=== PATIENT | male | born 1960 | race African-American/Black ===

== ENCOUNTER 2016-12-17 03:47 | Emergency (ER) | payer OTHER, SELFPAY ==
[2016-12-17] MEDS ORDERED: Lorazepam 2 MG/ML VIAL ONE (04:01)
[2016-12-17] MEDS ORDERED: Metoprolol Tartrate 5 MG/5 ML VIAL ONE ×3 (04:12→04:42)
[2016-12-17 04:17] LABS: INR-International Normal Ratio 1.2; PTT 23.6 SEC (22.9-36.1); Prothrombin Time 15.2 SEC (12.0-14.7)
[2016-12-17 04:24] LABS: Acetaminophen Less than 6.0 mcg/mL (10.0-30.0); Alcohol 114 mg/dL (Less than 10); Salicylate Less than 8.0 mg/dL (15.0-30.0)
[2016-12-17 04:27] LABS: #Basophils 0.1 thou/uL (0.0-0.2); #Lymphocytes 2.8 thou/uL (1.20-3.40); #Monocytes 0.7 thou/uL (0.11-0.59); #Neutrophils 2.7 thou/uL (1.40-6.50); %Eosinophils 0.3 % (0.0-10.0); %Lymphocytes 44.6 % (21.0-51.0); %Monocytes 11.1 % (0.0-10.0); ALT (SGPT) 24 U/L (8-55); AST (SGOT) 25 U/L (5-34); Alkaline Phosphatase 63 U/L (40-150); Anion Gap 17 mmol/L (10-20); BUN (Urea Nitrogen) 8 mg/dL (8.4-25.7); Bilirubin, Total 0.8 mg/dL (0.2-1.2); Calc. Creatinine Clearance 0 mL/min (70-130); Calcium 9.4 mg/dL (7.8-10.44); Carbon Dioxide 21 mmol/L (22-29); Chloride 105 mmol/L (98-107); Estimated GFR-MDRD 72; Globulin 3.7 g/dL (2.4-3.5); Glucose 150 mg/dL (70-105); Hemoglobin 19.4 g/dL (14.0-18.0); Lipase 19 U/L (8-78); MDiff Complete? YES; Macrocytosis SLIGHT = 6-15 cells (100X) (0-5/hpf); Mean Corpuscular HGB CONC 36.3 g/dL (32.0-36.0); Mean Corpuscular Hemoglobin 35.5 pg (27.0-31.0); Mean Corpuscular Volume 97.9 fl (80.0-94.0); Mean Platelet Volume 8.4 fL (7.4-10.4); PLT Morphology Comment Appears Adequate; Platelet Count 236 thou/uL (130-400); Potassium 3.6 mmol/L (3.5-5.1); Protein, Total 7.7 g/dL (6.0-8.3); RBC Distribution Width 11.8 % (11.5-14.5); Red Blood Cell (RBC) Count 5.45 mill/uL (4.70-6.10); Sodium 139 mmol/L (136-145); White Blood Cell (WBC) Count 6.3 thou/uL (4.8-10.8)
[2016-12-17 04:28] LABS: CKMB 1.3 ng/mL (0-6.6); Troponin I 0.012 ng/mL (< 0.028)
[2016-12-17] MEDS ORDERED: Nitroglycerin 50 MG/250 ML BOT 0 ML ONE (04:52)
[2016-12-17] MEDS ORDERED: Nitroglycerin 2% Ointment 1 INCH/1 GM Packet ONE ×3 (04:53→04:55)
--- NOTE | 2016-12-17 09:43 | RAD ---
PORTABLE CHEST 12/17/2016 0427 HOURS COMPARISON: No prior films available for comparison. FINDINGS: The heart is upper normal in size, but there are no congestive changes or pleural effusions. No foc al pulmonary infiltrates are seen. The mediastinum is unremarkable. The trachea is midline. IMPRESSION: No acute thoracic findings. POS: HOME
== END 2016-12-17 05:29 | disposition short-term general hospital (02) ==
LOC: BURERS 03:47 → EDBD 03:47 → BURERS 05:29
DX: F41.9 Anxiety disorder, unspecified (principal); R94.31 Abnormal electrocardiogram [ECG] [EKG]; B20 Human immunodeficiency virus [HIV] disease; E11.9 Type 2 diabetes mellitus without complications; I10 Essential (primary) hypertension; Z79.899 Other long term (current) drug therapy
CPT/HCPCS: 71010; 80053; 80307; 82553; 83690; 83880; 84484; 85025; 85610; 85730; 93005; 94760; 96374; 96375; A4353; J2060